=== PATIENT | female | born 1930 | race Caucasian/White ===

== ENCOUNTER 2019-11-14 07:21 | Emergency (ER) | payer OTHER ==
[~2019-11-14] VITALS: Ht 165.1 cm; Wt 72.6 kg
--- OUTSIDE RECORDS SUMMARY | 2019-11-14 07:24 | XMS REPORT | Summary of Care ---
Author Author HANK Marshall, STEVEN Pennington Unknown Address [facility] Phone Unavailable Care Team Providers Care Unified Communications Engineer Name Role Phone KEMI Marshall, ELEAZAR Unavailable Unavailable ABEL P.A., BRIDGET Unavailable Unavailable CORINNA KAPLAN [place], VERONICA BARBOUR Unavailable Unavailable TOÑO MAK MD Unavailable Unavailable ABEL ROSY [place], BRIDGET AGUIAR Unavailable Unavailable KEMI KAPLAN, ELEAZAR Unavailable Unavailable CORINNA KAPLAN, VERONICA GILL Unavailable Unavailable CORINNA Marshall, VERONICA Unavailable Unavailable Franky Temple MD Unavailable Unavailable Unavailable Unavailable Functional Status Name Dates Details Functional status health issues are not documented Status: Name Dates Details Cognitive status health issues are not documented Status: Problems Name Dates Details Need for pneumococcal vaccination (V03.82, Z23) Status: Active Dry skin (701.1, L85.3) Status: Active Generalized weakness (780.79, R53.1) Status: Active Decreased activities of daily living (ADL) (V49.89, Z78.9) Status: Active Hyponatremia (276.1, E87.1) Status: Active Special DrFouzia Services Analysis Of Computerized Data Status: Active Diverticulosis (562.10, K57.90) Status: Active Need for immunization against influenza (V04.81, Z23) Status: Active Advance care planning (V65.49, Z71.89) Status: Active Urinary urgency (788.63, R39.15) Status: Active Abnormal ankle brachial index (796.4, R68.89) Status: Active Allergic rhinitis, seasonal (477.9, J30.2) Status: Active Murmur (785.2, R01.1) Status: Active Aphthous ulcer of mouth (528.2, K12.0) Status: Active Risk for falls (V15.88, Z91.81) Status: Active Arteriosclerosis of carotid artery (433.10, I65.29) Status: Active 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, 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 Conjunctivitis, allergic (372.14, H10.10) Status: Active 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, 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, 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 Urinary frequency (788.41, R35.0) Status: Active Atherosclerosis of coronary artery (414.00, I25.10) Status: Active Onychomycosis of toenail (110.1, B35.1) Status: Active Tinea pedis of both feet (110.4, B35.3) Status: Active Iron deficiency anemia (280.9, D50.9) Status: Active Acute low back pain (724.2, M54.5) Status: Active Abdominal pain (789.00, R10.9) Status: Active Acute UTI (599.0, N39.0) Status: Active Dementia (294.20, F03.90) Status: Active Diverticulitis of colon (562.11, K57.32) Status: Active Hospital discharge follow-up (V67.59, Z09) Status: Active Renal insufficiency (593.9, N28.9) Status: Active Type II diabetes mellitus with peripheral circulatory disorder, uncontrolled (250.72, E11.51) Status: Active Essential (primary) hypertension (401.9, I10) Status: Active Mixed hyperlipidemia (272.2, E78.2) Status: Active Medications Name Dates Details GlucaGen HypoKit 1 MG Injection Solution Reconstituted USE DIRECTED in case of severe hypoglycemia Quantity: 1 KEMI M.D.ELEAZAR * Start : 25-Jul-2012 Active OneTouch Delica Lancets 33G TEST ONCE TO TWICE DAILY * Quantity: 200 Refills: 0 KEMI M.D., ELEAZAR * Start : 25-Jul-2012 Active OneTouch Verio In Vitro Strip USE EVERY DAY TO TWICE DAILY * Quantity: 200 Refills: 0 KEMI M.D., ELEAZAR * Start : 25-Jul-2012 Active Vitamin D 50 MCG (2000 UT) Oral Capsule 1 a day * Refills: 0 KEMI M.D., ELEAZAR * Start : 25-Jul-2012 Active Vitamin B-12 500 MCG Oral Tablet TAKE 1 TABLET DAILY. * Refills: 0 KEMI M.D., ELEAZAR * Start : 25-Jul-2012 Active Centrum Silver Ultra Womens Oral Tablet TAKE 1 TABLET DAILY. * Refills: 0 ELEAZAR MCMULLEN M.D. * Start : 25-Jul-2012 Active CoQ-10 100 MG Oral Capsule TAKE 1 CAPSULE DAILY * Refills: 0 ELEAZAR MCMULLEN M.D. * Start : 25-Jul-2012 Active Sertraline HCl - 25 MG Oral Tablet TAKE 1 TABLET DAILY. * Refills: 0 ELEAZAR MCMULLEN M.D. * Start : 13-Oct-2012 Active Atorvastatin Calcium 40 MG Oral Tablet TAKE 1 TABLET BY MOUTH EVERY NIGHT AT BEDTIME FOR CHOLESTEROL * Quantity: 90 Refills: 0 ELEAZAR MCMULLEN M.D. * Start : 25-Nov-2012 Active Biotin 5000 CAPS TAKE 1 CAPSULE DAILY. * Refills: 0 M.A. Active Vitamin E Complex 1000 UNIT Oral Capsule TAKE 1 CAPSULE DAILY. * Refills: 0 M.A. Active Aspirin 81 MG TABS TAKE 1 TABLET DAILY. * Refills: 0 M.A. Active Januvia 100 MG Oral Tablet TAKE ONE-HALF TABLET BY MOUTH DAILY. MAY INCREASE TO 1 TABLET TOLERATED * Quantity: 90 Refills: 0 ELEAZAR MCMULLEN M.D. * Start : 15-Feb-2015 Active Donepezil HCl - 5 MG Oral Tablet [address] Kenia Carcamo * Refills: 0 ELEAZAR MCMULLEN M.D. * Start : 12-Jul-2016 Active QUEtiapine Fumarate 50 MG Oral Tablet * Refills: 0 ELEAZAR MCMULLEN M.D. * Start : 10-Jul-2018 Active Tresiba FlexTouch 100 UNIT/ML Subcutaneous Solution Pen-injector Inject 22 units daily ; MDD:30 units * Quantity: 1 Refills: 1 ELEAZAR MCMULLEN M.D. * Start : 10-Jul-2018 Active 5 x 3 ML Pen BD Pen Needle Mini U/F 31G X 5 MM For dialy insulin injection * Quantity: 1 Refills: 0 ELEAZAR MCMULLEN M.D. * Start : 10-Jul-2018 Active 100 Unit Box Clotrimazole 1 % External Cream APPLY SPARINGLY TO AFFECTED AREA(S) OF FEET TWICE DAILY x 2-4 weeks * Quantity: 1 Refills: 2 BRIDGET DOWNING * Start : 31-Mar-2019 Active 45 GM Tube Losartan Potassium 25 MG Oral Tablet * Refills: 0 BRIDGET DOWNING * Start : 28-Jun-2019 Active 30 Tablet Pack Memantine HCl - 10 MG Oral Tablet 1 po Qam and 2 po Qpm * Refills: 0 M.A. Active Allergies and Adverse Reactions Name Dates Details No Known Drug Allergies (Allergy) Status: Active Past Medical History Name Dates Details History of abdominal pain (V13.89, Z87.898) Status: Resolved History of carotid artery stenosis (V12.59, Z86.79) Status: Resolved History of Coronary Artery Disease (V12.59) Status: Resolved History of Diabetes mellitus (250.00, E11.9) Status: Resolved History of essential hypertension (V12.59, Z86.79) Status: Resolved History of Postoperative examination (V67.00, Z09) Status: Resolved Procedures Procedure Dates Details History of Neurological Surgery Carotid Endarterectomy Completed History of Placement Of Selective Arterial Catheter - Aortic Approach Completed History of Superficial Femoral Thromboendarterectomy Completed History of PTCA Completed Immunization Name Dates Details Td on: 10-Mar-2009 Pneumococcal polysaccharide vaccine, 23 valent on: 10-Mar-2009 Influenza on: 07-Aug-2010 Prevnar 13 Intramuscular Suspension Lot #: [id number] on: 24-Apr-2015 Fluzone High-Dose 0.5 ML Intramuscular Suspension Prefilled Syringe Lot #: [id number] on: 30-Aug-2015 Fluzone High-Dose SUSP Lot #: [id number] on: 18-Jul-2016 Fluzone Quadrivalent 0.5 ML Intramuscular Suspension Prefilled Syringe Lot #: [id number] on: 08-Sep-2017 Family History Name Dates Details Family history of Cerebral Artery Occlusion Comments: Family History Status: Active Family history of Coronary Artery Disease (V17.49) Comments: Family History Status: Active Name Dates Details Family history of diabetes mellitus (V18.0, Z83.3) Status: Active Social History Name Dates Details - Status: Name Dates Details Never smoker Vital Signs Date Test Result Details No Known Vitals to report Results Date Description Value Details Results not documented Plan of Care Name Dates Details Planned Observations Planned Goals not documented Interventions Provided Medication Changes* Tresiba FlexTouch 100 UNIT/ML Subcutaneous Solution Pen- injector - Renew Instructions Name Dates Details Instructions not documented Encounters Appointment; ELEAZAR MCMULLEN M.D. Encounter Diagnosis: Problem not documented On: 13-Nov-2017 14:15 Appointment; ELEAZAR MCMULLEN M.D. Encounter Diagnosis: Problem not documented On: 18-Nov-2017 13:30 Appointment; LISANDRA MORIN M.D. Encounter Diagnosis: Problem not documented On: 23-Jan-2018 11:30 Appointment; ELEAZAR MCMULLEN M.D. Encounter Diagnosis: Problem not documented On: 19-Feb-2018 14:15 [facility] [place] [facility] [place] Encounter Diagnosis: Problem not documented On: 18-Mar-2018 11:00 Appointment; FRANKY TEMPLE M.D. Encounter Diagnosis: Problem not documented On: 18-Mar-2018 12:00 Appointment; ANGELICA SALAZAR M.D. Encounter Diagnosis: Problem not documented On: 02-Apr-2018 16:00 Appointment; AMPARO WAN NP Encounter Diagnosis: Problem not documented On: 03-Apr-2018 16:15 Appointment; CRISTOBAL RASMUSSEN D.O. Encounter Diagnosis: Problem not documented On: 23-Apr-2018 10:00 Appointment; ARIE MENDEZ M.D. Encounter Diagnosis: Problem not documented On: 22-May-2018 10:45 Appointment; ELEAZAR MCMULLEN M.D. Encounter Diagnosis: Problem not documented On: 04-Jun-2018 15:15 Appointment; CRISTOBAL RASMUSSEN D.O. Encounter Diagnosis: Problem not documented On: 30-Jun-2018 12:30 Appointment; VANESSA SANCHEZ RD Encounter Diagnosis: Problem not documented On: 10-Jul-2018 10:00 Appointment; ELEAZAR MCMULLEN M.D. Encounter Diagnosis: Problem not documented On: 13-Aug-2018 14:45 Appointment; ELEAZAR MCMULLEN M.D. Encounter Diagnosis: Problem not documented On: 30-Oct-2018 15:45 Appointment; FRANKY TEMPLE M.D. Encounter Diagnosis: Problem not documented On: 18-Nov-2018 15:00 Appointment; FRANKY TEMPLE M.D. Encounter Diagnosis: Problem not documented On: 27-Nov-2018 14:00 Appointment; ELEAZAR MCMULLEN M.D. Encounter Diagnosis: Problem not documented On: 19-Feb-2019 13:00 Appointment; BRIDGET ROMAN P.A. Encounter Diagnosis: Problem not documented On: 31-Mar-2019 15:30 Appointment; BRIDGET ROMAN P.A. Encounter Diagnosis: Problem not documented On: 19-May-2019 15:30 Appointment; ELEAZAR MCMULLEN M.D. Encounter Diagnosis: Problem not documented On: 04-Jun-2019 13:30 Appointment; BRIDGET ROMAN P.A. Encounter Diagnosis: Problem not documented On: 28-Jun-2019 15:00 Appointment; BRIDGET ROMAN P.A. Encounter Diagnosis: Problem not documented On: 04-Aug-2019 16:15 Appointment; ELEAZAR MCMULLEN M.D. Encounter Diagnosis: Problem not documented On: 25-Aug-2019 15:15
--- OUTSIDE RECORDS SUMMARY | 2019-11-14 07:24 | XMS REPORT ---
[facility] Address Unknown Phone Unavailable Care Team Providers Care Assignment Officer Name Role Phone Unavailable Unavailable Payers Payer Name Policy Type Policy Number Effective Date Expiration Date Problems This patient has no known problems. Allergies, Adverse Reactions, Alerts Allergy Name Allergy Type Status Severity Reaction(s) Onset Date Inactive Date Treating Clinician Comments No Known Allergies DA Active U 2017-12-06 00:00:00 Medications This patient has no known medications. Results Test Description Test Time Test Comments Text Results Atomic Results Result Comments - CT HEAD/BRAIN W/O CONT 2019-08-23 18:54:00 Name: DEMARCUS RAMOS [facility] : 1930 Age/S: 88 / F [address] [place] [address] Unit #: [id number] Loc: [place] [address] Phys: Aakash Benito MD Acct: [id number] Dis Date: Status: PRE ER PHONE #: [phone] Exam Date: 08/23/2019 1840 FAX #: [phone] Reason: HEADACHE EXAMS: CPT CODE: [id number] CT HEAD/BRAIN W/O CONT 08524 PROCEDURE: CT HEAD WITHOUT CONTRAST INDICATION: Headache post fall COMPARISON: There are no previous relevant studies available for correlation. TECHNIQUE: Noncontrast helical imaging performed skull base to the vertex. Multiplanar reformations are obtained. CT imaging performed at this location utilizes radiation dose optimization techniques which include one or more of the following: -Automated exposure control -Adjustment of the mA and/or kV according to patient size -Use of iterative reconstruction technique CT Radiation Dose DLP 367.23 mGy-cm LIMITATIONS: None. FINDINGS: BRAIN PARENCHYMA: There are generalized involutional changes. Mild areas of diminished attenuation in the cerebral white matter bilateral. The cortical architecture is otherwise maintained. The midline structures and posterior fossa contents are unremarkable. No intra-axial or extra-axial hemorrhage, mass lesion or mass effect. Calcified plaque cavernous carotid arteries. Benign dural calcifications noted. VENTRICLES: Mild prominence of the lateral ventricles is not out of proportion to prominence of the sulci. The basilar cisterns are maintained. ORBITS, MASTOIDS AND PARANASAL SINUSES: Bilateral ocular surgery. The orbital contents are otherwise unremarkable. The visualized paranasal sinuses and mastoid air cells are pneumatized. SKULL: The calvarium is intact. IMPRESSION: 1. Negative for acute intracranial injury. 2. No hemorrhage, mass lesion or evidence of acute infarct. 3. Atrophy and chronic microvascular ischemic changes. If there is continued clinical concern, further imaging options include MRI. PAGE 1 Signed Report (CONTINUED) Name: DEMARCUS RAMOS [facility] : 1930 Age/S: 88 / F [address] [place] [address] Unit #: [id number] Loc: [place] [address] Phys: Aakash Benito MD Acct: [id number] Dis Date: Status: PRE ER PHONE #: [phone] Exam Date: 08/23/2019 1840 FAX #: [phone] Reason: HEADACHE EXAMS: CPT CODE: [id number] CT HEAD/BRAIN W/O CONT 49124 <Continued> SL: [id number] at 1854 Reported and signed by: Alejandro Oneal M.D. CC: Aakash Benito MD; Quinton Hernandez Technologist:RT Aruna(R)(CT) CTDI: DLP: Trnscb Date/Time: 08/23/2019 (1853) Kisha Orig Print D/T: S: 08/23/2019 (1856) PAGE 2 Signed Report CHEMISTRY 8 PROFILE 2019-08-23 18:52:00 ISTAT-SODIUM (test code=NAP) MMOL/L 134-147 ISTAT-POTASSIUM (test code=KP) MMOL/L 3.4-5.0 ISTAT-CHLORIDE (test code=CLP) MMOL/L 100-108 ISTAT CARBON DIOXIDE (test code=ISTAT-CO2) mmol/L 21-33 ISTAT CALCIUM IONIZED (test code=ISTAT-DOMINGO) MG/DL 1.12-1.32 ISTAT-GLUCOSE (test code=GLUP) MG/DL 70-110 ISTAT-BUN (test code=BUNP) MG/DL 7-18 BEDSIDE CREATININE (test code=CREATBED) MG/DL 0.6-1.3 GLOMERULAR FILTRATION RATE POC (test code=GFRBED) 50 ML/MIN CHEMISTRY 8 [id number] 18:52:00* Test Item Value Reference Range Comments ISTAT-SODIUM (test code=NAP) 140 MMOL/L 134-147 ISTAT-POTASSIUM (test code=KP) 4.1 MMOL/L 3.4-5.0 ISTAT-CHLORIDE (test code=CLP) 106 MMOL/L 100-108 Performed by certified profiling machine set up operator tool at [facility] ISTAT CARBON DIOXIDE (test code=ISTAT-CO2) 28.0 mmol/L 21-33 ISTAT CALCIUM IONIZED (test code=ISTAT-DOMINGO) 1.34 MG/DL 1.12-1.32 ISTAT-GLUCOSE (test code=GLUP) 211 MG/DL 70-110 ISTAT-BUN (test code=BUNP) 28 MG/DL 7-18 BEDSIDE CREATININE (test code=CREATBED) 1.1 MG/DL 0.6-1.3 GLOMERULAR FILTRATION RATE POC (test code=GFRBED) 50 ML/MIN CBC W/AUTO [id number] 18:43:00* Test Item Value Reference Range Comments WHITE BLOOD CELL (test code=WBC) 7.48 x10 3/uL 4.5-11.0 RED BLOOD CELL (test code=RBC) 4.06 x10 6/uL 3.54-5.02 HEMOGLOBIN (test code=HGB) 11.8 g/dL 11.0-15.0 HEMATOCRIT (test code=HCT) 37.7 % 33.0-45.0 MEAN CELL VOLUME (test code=MCV) 92.9 fL 81.0-99.0 MEAN CELL HGB (test code=MCH) 29.1 pg 27.0-33.0 MEAN CELL HGB CONCETRATION (test code=MCHC) 31.3 g/dL 33.0-37.0 RED CELL DISTRIBUTION WIDTH CV (test code=RDW) 13.5 % 11.5-14.5 RED CELL DISTRIBUTION WIDTH SD (test code=RDW-SD) 46.4 fL 37.0-54.0 PLATELET COUNT (test code=PLT) 207 x10 3/uL 150-400 MEAN PLATELET VOLUME (test code=MPV) 10.6 fL 7.0-9.0 NEUTROPHIL % (test code=NT%) 49.5 % 56.0-77.0 IMMATURE GRANULOCYTE % (test code=IG%) 0.4 % 0.0-2.0 LYMPHOCYTE % (test code=LY%) 38.9 % 14.0-32.0 MONOCYTE % (test code=MO%) 7.9 % 4.8-9.0 EOSINOPHIL % (test code=EO%) 2.9 % 0.3-3.7 BASOPHIL % (test code=BA%) 0.4 % 0.0-2.0 NUCLEATED RBC % (test code=NRBC%) 0.0 % 0-0 NEUTROPHIL # (test code=NT#) 3.70 x10 3/uL 2.0-7.6 IMMATURE GRANULOCYTE # (test code=IG#) 0.03 x10 3/uL 0.00-0.03 LYMPHOCYTE # (test code=LY#) 2.91 x10 3/uL 1.0-3.8 MONOCYTE # (test code=MO#) 0.59 x10 3/uL 0.1-0.8 EOSINOPHIL # (test code=EO#) 0.22 x10 3/uL 0.0-0.2 BASOPHIL # (test code=BA#) 0.03 x10 3/uL 0.0-0.2 NUCLEATED RBC # (test code=NRBC#) 0.00 x10 3/uL 0.0-0.1 MANUAL DIFF REQUIRED (test code=MDIFF) NO UA RFLX MICR CULT IF [id number] 18:41:00* Test Item Value Reference Range Comments UA COLOR (test code=COLU) YELLOW YEL/STRAW UA APPEARANCE (test code=APPU) CLEAR CLEAR UA GLUCOSE DIPSTICK (test code=DGLUU) 3+ NEGATIVE UA BILIRUBIN DIPSTICK (test code=BILU) NEGATIVE NEGATIVE UA KETONE DIPSTICK (test code=KETU) NEGATIVE NEGATIVE UA SPECIFIC GRAVITY (test code=SGU) 1.008 1.005-1.030 UA BLOOD DIPSTICK (test code=DANIEL) NEGATIVE NEGATIVE UA PH DIPSTICK (test code=STEPHANY) 5.0 5.0-7.0 UA PROTEIN DIPSTICK (test code=PROU) NEGATIVE NEGATIVE UA UROBILINIOGEN DIPSTICK (test code=URO) 0.2 mg/dL 0.2-1.0 UA NITRITE DIPSTICK (test code=JESSICA) NEGATIVE NEGATIVE UA LEUKOCYTE ESTERASE DIPSTICK (test code=LEUU) 1+ NEGATIVE UA WBC (test code=WBCU) 4-9 WBC/HPF 0-3 UA RBC (test code=RBCU) 4-10 RBC/HPF 0-3 UA WBC NO REFLEX (test code=WBCUCL) 4-9 WBC/HPF 0-3 UA BACTERIA (test code=BACU) TRACE /HPF NONE SEEN UA SQUAMOUS CELLS (test code=SQU) 0-5 /HPF NONE SEEN UA MUCUS (test code=MUCU) TRACE /LPF NONE SEEN Indication for culture: Delirium-if no other srcSpecimen Description: CLEAN CATCH
[2019-11-14] MEDS: ACETAMINOPHEN 325 MG TAB PO ONE (07:50)
[2019-11-14] MEDS: MUPIROCIN 2% OINT 22 GM TUBE TOP ONE (08:30)
--- NOTE | 2019-11-14 09:40 | Diagnostic Imaging Report ---
History:Fell, hit left forehead Comparison studies:None Technique: Axial images were obtained to the vertex and maxillofacial region. Coronal and sagittal images reconstructed from the axial data. Intravenous contrast: None Dose modulation, iterative reconstruction, and/or weight based adjustment of the mA/kV was utilized to reduce the radiation dose to as low as reasonably achievable. Findings: Scalp/skull: Left frontal and supraorbital scalp hematoma. No fractures. Extra-axial spaces: No masses. No fluid collections. Brain sulci: Mildly prominent. Ventricles: Mild compensatory dilatation. No hydrocephalus. Parenchyma: Scattered subtle hypodensities in the supratentorial white matter are small vessel ischemic changes. No masses, hemorrhage, acute or chronic cortical vascular insults. Sellar/suprasellar region: No abnormalities. Craniocervical junction: Patent foramen magnum. No Chiari one malformation. Incidental findings: Atherosclerotic calcifications in the carotid siphons and vertebral arteries . Maxillofacial CT: Soft tissues: Left periorbital soft tissue swelling Bones: No fractures or bone abnormalities. Orbits: Globes: No acute abnormality. Bilateral cataract surgery changes. Extra or intraconal abnormalities: None. Paranasal sinuses: Mild mucosal thickening at the right maxillary sinus the remaining paranasal sinuses are clear. Incidental findings: None Impression: Head CT: 1. No acute intracranial abnormalities. 2. Left frontal and supraorbital scalp hematoma. No fractures 3. Mild generalized volume loss. 4. Mild supratentorial white matter small vessel ischemic changes. Maxillofacial CT: 1. Left periorbital soft tissue swelling without underlying fracture. Signed by: DR Markel Acevedo M.D. on 11/14/2019 9:38 AM
[2019-11-14 09:45] VITALS: BP 163/71
== END 2019-11-14 09:59 | disposition home or self-care (01) ==
LOC: ER 07:21
DX: S00.212A Abrasion of left eyelid and periocular area, initial encounter (principal); S00.83XA Contusion of other part of head, initial encounter; W01.0XXA Fall on same level from slipping, tripping and stumbling without subsequent striking against object, initial encounter; Y93.01 Activity, walking, marching and hiking; Y92.008 Other place in unspecified non-institutional (private) residence as the place of occurrence of the external cause; E11.9 Type 2 diabetes mellitus without complications
CPT/HCPCS: 70450; 70486; 99283